=== PATIENT | male | born 1970 | race Caucasian/White ===

== ENCOUNTER 2018-02-24 07:10 | Inpatient (IN) | payer MEDICARE ==
[~2018-02-24] VITALS: Ht 317.5 cm; Wt 116.4 kg
[~2018-02-24 07:10] MED LIST: CeFAZolin 2 GM/DEXTROSE 50 ML IV ONE; RINGERS SOLUTION,LACTATED 1,000 ML IV ONE
[2018-02-24] MEDS ORDERED: RINGERS SOLUTION,LACTATED 1,000 ML IV ONE (07:32)
[2018-02-24] MEDS ORDERED: CeFAZolin 2 GM/DEXTROSE 50 ML IV ONE (07:33)
[2018-02-24 08:02] LABS: BASOPHILS % (AUTO) 1.2 % (0.0-2.0); EOSINOPHILS % (AUTO) 2.7 % (1.0-6.0); HEMATOCRIT 44.7 % (41-53); HEMOGLOBIN 15.4 g/dL (13.5-17.5); LYMPHOCYTES # (AUTO) 1.7 K/uL (1.0-4.8); LYMPHOCYTES % (AUTO) 27.5 % (22.0-44.0); MEAN CORPUSCULAR HEMOGLOBIN 32.5 pg (26.0-34.0); MEAN CORPUSCULAR HGB CONC 34.4 G/dL (31.0-37.0); MEAN CORPUSCULAR VOLUME 95 fL (80-100); MONOCYTES # (AUTO) 0.6 K/uL (0.1-1.0); MONOCYTES % (AUTO) 10.1 % (2.0-9.0); NEUTROPHILS # (AUTO) 3.6 K/uL (1.8-7.7); NEUTROPHILS % (AUTO) 58.5 % (40.0-70.0); PLATELET COUNT (AUTO) 246 K/uL (150-450); RED BLOOD CELL COUNT(AUTO) 4.73 MIL/uL (4.50-5.90); RED CELL DISTRIBUTION WIDTH 13.9 % (11.5-14.5)
[2018-02-24] MEDS ORDERED: ACETAMINOPHEN 1000 MG/ISO-OSM 100 ML IV ONE (08:04)
[2018-02-24 08:22] LABS: ANION GAP 5 mmol/L (8-16); CARBON DIOXIDE 29 mmol/L (22-29); CHLORIDE 103 mmol/L (98-107); GLOMERULAR FILTR. RATE CALC > 60 mL/min (>60); GLUCOSE,RANDOM 98 mg/dL (70-110); POTASSIUM 4.2 mmol/L (3.5-5.1); SODIUM SERUM 137 mmol/L (136-145); UREA NITROGEN, BLOOD 12 mg/dL (7-18)
[2018-02-24] MEDS ORDERED: PROPOFOL 1000 MG/ISO-OSM 100 ML IV ONE (08:25)
[2018-02-24] MEDS ORDERED: MAG HYDROX/AL HYDROX/SIMETH 30 ML SUSP UDCUP PO PRN (08:30)
[2018-02-24] MEDS ORDERED: ZOLPIDEM TARTRATE 10 MG TABLET PO PRN (08:30)
[2018-02-24] MEDS ORDERED: BENZOCAINE/MENTHOL LOZENGE PO PRN (08:30)
[2018-02-24] MEDS ORDERED: DiphenhydrAMINE HCL 50 MG/ML VIAL IVP PRN (08:30)
[2018-02-24 09:18] LABS: INR 1.1 (0.9-1.1); PROTHROMBIN TIME 11.7 SEC (9.4-11.6)
[2018-02-24] MEDS ORDERED: GUM MASTIC/STORAX/MSAL/ALCOHOL LIQUID 0.67 ML VIAL TP ONE (10:21)
[2018-02-24] MEDS ORDERED: HYDROmorphone 2 MG/ML SYRINGE ONE (10:55)
[2018-02-24] MEDS ORDERED: ONDANSETRON HCL 4 MG/2 ML VIAL ONE (11:03)
[2018-02-24] MEDS ORDERED: NALOXONE HCL 1 MG/ML 2 ML SYG IVP PRN (11:15)
[2018-02-24] MEDS ORDERED: MEPERIDINE-PF 25 MG/ML VIAL IVP PRN (11:15)
[2018-02-24] MEDS: HYDROmorphone 2 MG/ML SYRINGE IVP PRN ×7 (11:15→22:17)
[2018-02-24] MEDS ORDERED: ONDANSETRON HCL 4 MG/2 ML VIAL IVP PRN ×2 (11:15)
[2018-02-24] MEDS ORDERED: CYCLOBENZAPRINE HCL 10 MG TABLET PO PRN (11:15)
[2018-02-24] MEDS ORDERED: SUCCINYLCHOLINE CHLORIDE 20 MG/ML 10 ML VIAL IVP ONE (12:00)
[2018-02-24] MEDS ORDERED: ROCURONIUM BROMIDE 10 MG/ML 5 ML VIAL IVP ONE (12:00)
[2018-02-24] MEDS ORDERED: MIDAZOLAM HCL 2 MG/2 ML VIAL IVP ONE ×2 (12:00)
[2018-02-24] MEDS ORDERED: LIDOCAINE/PF 2% 5 ML VIAL INJ ONE (12:00)
[2018-02-24] MEDS ORDERED: DEXAMETHASONE SOD PHOS 4 MG/ML VIAL IVP ONE (12:00)
[2018-02-24] MEDS ORDERED: ONDANSETRON HCL 4 MG/2 ML VIAL IVP ONE (12:00)
[2018-02-24 14:23] VITALS: BP 140/92
[2018-02-24] MEDS: OxyCODONE HCL/ACETAMINOPHEN 10-325 MG TABLET PO PRN (14:37)
[2018-02-24] MEDS: ACETAMINOPHEN 1000 MG/ISO-OSM 100 ML IV SCH (15:40)
[2018-02-24 16:13] VITALS: BP 121/88
[2018-02-24 19:46] VITALS: BP 134/96
[2018-02-24] MEDS: DOCUSATE SODIUM 100 MG CAPSULE PO SCH (20:13)
[2018-02-24 23:17] VITALS: BP 127/83
[2018-02-25] MEDS: ACETAMINOPHEN 1000 MG/ISO-OSM 100 ML IV SCH ×2 (00:10→07:59)
[2018-02-25] MEDS: HYDROmorphone 2 MG/ML SYRINGE IVP PRN ×2 (03:58→07:27)
[2018-02-25 04:29] VITALS: BP 120/75
[2018-02-25 07:40] VITALS: BP 122/72
[2018-02-25] MEDS: DOCUSATE SODIUM 100 MG CAPSULE PO SCH (07:59)
[2018-02-25] MEDS: OxyCODONE HCL/ACETAMINOPHEN 10-325 MG TABLET PO PRN (10:06)
[2018-02-25] MEDS ORDERED: OXYC-38 PO (11:35)
[2018-02-25 11:52] VITALS: BP 129/83
== END 2018-02-25 12:30 | disposition home or self-care (01) | DRG 473 ==
LOC: SURGERY 07:10 → 4E 07:11 → EDSTATUS 09:30
PROVIDERS: ADMIT Orthopaedic Surgery Orthopaedic Surgery of the Spine; ATTEND Orthopaedic Surgery Orthopaedic Surgery of the Spine
PROC: 0RG20A0 Fusion of 2 or more Cervical Vertebral Joints with Interbody Fusion Device, Anterior Approach, Anterior Column, Open Approach (ICD-10-PCS; principal; 2018-02-24 09:02)
DX: M48.02 Spinal stenosis, cervical region (principal); Z88.2 Allergy status to sulfonamides; Z88.6 Allergy status to analgesic agent
CPT/HCPCS: 87081; 93005; 97161; 97165; 97530; 97535; C1713; J0131; J0330; J0690; J1100; J1170; J1200; J2250; J2405; J2704; J3490; J7120